=== PATIENT | female | born 1940 | race Caucasian/White ===

== ENCOUNTER 2021-09-04 12:10 | Emergency (ER) | payer OTHER ==
[~2021-09-04] VITALS: Ht 147.3 cm; Wt 68.0 kg
== END 2021-09-04 14:27 | disposition home or self-care (01) ==
LOC: ER 12:10
DX: S00.93XA Contusion of unspecified part of head, initial encounter (principal); W18.30XA Fall on same level, unspecified, initial encounter; Y93.9 Activity, unspecified; Y92.59 Other trade areas as the place of occurrence of the external cause; Y99.9 Unspecified external cause status